=== PATIENT | male | born 1960 | race Caucasian/White ===

== ENCOUNTER 2023-09-18 12:55 | Outpatient (CLI) | payer OTHER, SELFPAY ==
--- NOTE | 2023-09-18 13:12 | XR_ITS ---
WS: [id number] Exam: XR shoulder RT min 2V* [id number] Date/Time of Exam: 09/18/2023 1:24 PM Reason For Exam: R SHOULDER PAIN No acute fracture or dislocation. Minimal DJD at the AC joint. Normal soft tissues. IMPRESSION: 1. Mild AC joint DJD.
--- NOTE | 2023-09-18 13:12 | XR_ITS ---
WS: [id number] Exam: XR lumbar spine 2-3V* [id number] Date/Time of Exam: 09/18/2023 1:24 PM Reason For Exam: BACK PAIN No acute fracture or dislocation. There is spondylosis. Facet DJD at L4-5 and L5-S1. Increased lumbar lordosis. Aortoiliac atherosclerosis. IMPRESSION: 1. Degenerative changes of the lumbar spine but no fracture or malalignment.
== END 2023-09-18 12:56 | disposition home or self-care (01) ==
PROVIDERS: PCP Nurse Practitioner; Visit Provider Dermatology
DX: Z02.71 Encounter for disability determination (principal); M19.011 Primary osteoarthritis, right shoulder; M47.816 Spondylosis without myelopathy or radiculopathy, lumbar region; I70.0 Atherosclerosis of aorta
CPT/HCPCS: 72100; 73030